=== PATIENT | female | born 1940 | race Caucasian/White ===

== ENCOUNTER 2017-09-27 10:31 | Emergency (ER) | payer BC, MEDICARE, OTHER ==
[~2017-09-27] VITALS: Ht 170.2 cm; Wt 85.4 kg
[~2017-09-27 10:31] MED LIST: KETO10 PO; Z.0.NO CURRENT MEDS
[2017-09-27 10:35] VITALS: BP 186/96; PULSE 97; RESP 18; TEMP 98.4; O2SAT 97
[2017-09-27] MEDS ORDERED: BENZ100 PO (11:00)
[2017-09-27] MEDS ORDERED: ALBUAER3 INH (11:00)
[2017-09-27] MEDS ORDERED: AZIT250T3 PO (11:00)
--- NOTE | 2017-09-27 11:01 | PD ---
HPI Chief Complaint: Cold / Flu Symptoms Time Seen by Provider: 10:42 Travel History International Travel<30 days: No Contact w/Intl Traveler<30days: No Traveled to known affect area: No History of Present Illness HPI This is a 77-year-old female here with a productive cough and reported colored phlegm 1 week. She reports the cough has actually been present for 1 month. She reports similar symptoms in the past with bronchitis. Denies fever or chills. No chest pain or shortness of breath. No myalgias. Patient is from [place] and [place] in [place]. Symptom severity is moderate. No aggravating or alleviating factors. PFSH Past Medical History High Cholesterol: Yes Diminished Hearing: No Respiratory: Yes (BRONCHITIS, PNEUMONIA 2004) ?: Not Menopausal: Yes Past Surgical History Section: Yes Other Surgery: Yes (BREAST, HEMRRHOID SURGERY) Social History Alcohol Use: No Tobacco Use: No Substance Use: No Allergies-Medications (Allergen,Severity, Reaction): Coded Allergies: No Known Allergies (Verified Adverse Reaction, Unknown, 09/27/17) Reported Meds & Prescriptions Reported Meds & Active Scripts Active Toradol (Ketorolac Tromethamine) 10 Mg Tab 10 Mg PO Q6HPRN Reported No Current Meds (Miscellaneous Medication) Misc Review of Systems Except as stated in HPI: all other systems reviewed are Neg General / Constitutional: No: Fever Eyes: No: Visual changes HENT: No: Headaches Cardiovascular: No: Chest Pain or Discomfort Respiratory: Positive: Cough Gastrointestinal: No: Abdominal Pain Genitourinary: No: Dysuria Musculoskeletal: No: Pain Skin: No Rash Physical Exam Narrative GENERAL: Alert and nontoxic appearing 77-year-old female SKIN: Warm and dry. No rash HEAD: Normocephalic. EYES: No injection or drainage. EARS/NOSE/THROAT: Mild pharyngeal erythema without tonsilar hypertrophy or exudate. NECK: Supple, trachea midline. CARDIOVASCULAR: Regular rate and rhythm without murmurs, gallops, or rubs. RESPIRATORY: Breath sounds equal bilaterally. No accessory muscle use. Rhonchorous cough. GASTROINTESTINAL: Abdomen soft, non-tender, nondistended. MUSCULOSKELETAL: No cyanosis, or edema. Data Data Last Documented VS Vital Signs Date Time Temp Pulse Resp B/P (MAP) Pulse Ox O2 Delivery O2 Flow Rate FiO2 09/27/17 10:35 98.4 97 18 186/96 [phone] MDM Medical Decision Making Medical Screen Exam Complete: Yes Emergency Medical Condition: Yes Differential Diagnosis Bronchitis, pneumonia, influenza Narrative Course This is a 77-year-old female with productive cough. She is well-appearing. She is afebrile. No symptoms of flu. She will be treated for bronchitis with azithromycin, Tessalon Perles, albuterol inhaler. Diagnosis Primary Impression: Bronchitis Referrals: Primary Care Physician Additional Instructions: Antibiotics as prescribed. Tessalon Perles as needed for cough. Albuterol inhaler as needed for wheezing. Return if he developed new or worsening symptoms. Scripts Albuterol 8.5 GM Inh (Proair Hfa 8.5 GM Inh) 90 Mcg/Act Aer 2 PUFF INH Q4-6H Y for SHORTNESS OF BREATH, #1 INHALER 0 Refills 108 mcg/actuation Prov: Cherie Jovel 09/27/17 Benzonatate (Tessalon Perles) 100 Mg Cap 200 MG PO TID Y for COUGH, #12 CAP 0 Refills Prov: Cherie Jovel 09/27/17 Azithromycin (Azithromycin) 250 Mg Tab 250 MG PO DIRECTED for Infection, #6 TAB 0 Refills Take 2 tabs (500 mg) on day 1 then 1 tab daily x 4 days. Prov: Cherie Jovel 09/27/17 Disposition: 01 DISCHARGE HOME Condition: Stable Cherie Jovel Sep 27, 2017 11:01
[2017-09-27] MEDS ORDERED: TAMO10TA6 PO (11:02)
== END 2017-09-27 11:19 | disposition home or self-care (01) ==
LOC: PHEFT 10:31
DX: J40 Bronchitis, not specified as acute or chronic (principal); E78.00 Pure hypercholesterolemia, unspecified; Z79.899 Other long term (current) drug therapy
CPT/HCPCS: 99284

== ENCOUNTER 2017-10-02 12:28 | Emergency (ER) | payer MEDICARE, OTHER ==
[~2017-10-02] VITALS: Ht 170.2 cm; Wt 83.7 kg
[~2017-10-02 12:28] MED LIST changes: -KETO10 PO; +TAMO10TA6 PO; -Z.0.NO CURRENT MEDS
[2017-10-02 12:48] VITALS: BP 157/86; PULSE 82; RESP 16; TEMP 99.1; O2SAT 96
[2017-10-02] MEDS ORDERED: RESP: ALBUTEROL 2.5 MG/IPRATROPIUM 0.5 MG NEB (SCH) INH ONE (13:45)
--- NOTE | 2017-10-02 13:46 | PD ---
HPI Chief Complaint: Cold / Flu Symptoms Time Seen by Provider: 13:35 Travel History International Travel<30 days: No Contact w/Intl Traveler<30days: No Traveled to known affect area: No History of Present Illness HPI 77 her old female presents for evaluation of cough. Symptoms started one month ago. The cough is productive with green sputum. Worse at night. Associated with a "rattling" sensation in her chest which is worsened night. She was seen here 5 days ago, diagnosed with bronchitis, prescribed Tessalon, albuterol inhaler, azithromycin. She completed the azithromycin yesterday and the cough persist which prompted her evaluation. She did not get the prescriptions for Tessalon her albuterol filled. Denies any fevers, chills, abdominal pain, nausea or vomiting, acute dyspnea. She has no other complaints at this time. PFSH Past Medical History Cancer: Yes (breast ) High Cholesterol: Yes Diminished Hearing: No Respiratory: Yes (BRONCHITIS, PNEUMONIA 2003) Radiation Therapy: Yes Menopausal: Yes Past Surgical History Section: Yes (x 2) Eye Surgery: Yes Other Surgery: Yes (BREAST, HEMRRHOID SURGERY) Social History Alcohol Use: No Tobacco Use: No Substance Use: No Allergies-Medications (Allergen,Severity, Reaction): Coded Allergies: No Known Allergies (Verified Adverse Reaction, Unknown, 10/02/17) Reported Meds & Prescriptions Reported Meds & Active Scripts Active Prednisone 20 Mg Tab 20 Mg PO BID 5 Days Tessalon Perles (Benzonatate) 100 Mg Cap 200 Mg PO TID PRN Proair Hfa 8.5 GM Inh (Albuterol Sulfate) 90 Mcg/Act Aer 2 Puff INH Q4-6H PRN 108 mcg/actuation Reported Tamoxifen (Tamoxifen Citrate) 10 Mg Tab 10 Mg PO DAILY Review of Systems Except as stated in HPI: all other systems reviewed are Neg Physical Exam Narrative GENERAL: Well-developed well-nourished female in no acute distress SKIN: Warm and dry. HEAD: Atraumatic. Normocephalic. EYES: Pupils equal and round. No scleral icterus. No injection or drainage. ENT: No nasal bleeding or discharge. Mucous membranes pink and moist. NECK: Trachea midline. No JVD. CARDIOVASCULAR: Regular rate and rhythm. No murmur appreciated. RESPIRATORY: No accessory muscle use. Slight inspiratory wheezing bilaterally. GASTROINTESTINAL: Abdomen soft, non-tender, nondistended. Hepatic and splenic margins not palpable. MUSCULOSKELETAL: No obvious deformities. No clubbing. No cyanosis. No edema. NEUROLOGICAL: Awake and alert. No obvious cranial nerve deficits. Motor grossly within normal limits. Normal speech. PSYCHIATRIC: Appropriate mood and affect; insight and judgment normal. Data Data Last Documented VS Vital Signs Date Time Temp Pulse Resp B/P (MAP) Pulse Ox O2 Delivery O2 Flow Rate FiO2 10/02/17 12:48 99.1 82 16 157/86 (109) 96 Orders Orders Chest, Pa & Lat (10/02/17 ) Albuterol-Ipratropium Neb (Duoneb Neb) (10/02/17 13:45) MDM Medical Decision Making Medical Screen Exam Complete: Yes Emergency Medical Condition: Yes Medical Record Reviewed: Yes Differential Diagnosis Bronchitis, reactive airway disease, pneumonia, sinusitis Narrative Course The patient appears well. Because of the duration of her symptoms, chest x-ray has been ordered. She does have slight wheezing and a likely that it from bronchodilators and corticosteroids. DuoNeb treatment has been ordered. X-rays negative. The patient experienced significant improvement with DuoNeb treatment. She will be given a new prescription for albuterol and Tessalon because she no longer has her previous prescriptions. She will also be given a short course of prednisone. Diagnosis Primary Impression: Bronchitis Med/Other Pt SpecificInfo: Prescription(s) given Scripts Prednisone (Prednisone) 20 Mg Tab 20 MG PO BID for 5 Days, #10 TAB 0 Refills Prov: Cara Smith MD 10/02/17 Benzonatate (Tessalon Perles) 100 Mg Cap 200 MG PO TID Y for COUGH, #30 CAP 0 Refills Prov: Cara Smith MD 10/02/17 Albuterol 8.5 GM Inh (Proair Hfa 8.5 GM Inh) 90 Mcg/Act Aer 2 PUFF INH Q4-6H Y for SHORTNESS OF BREATH, #1 INHALER 0 Refills 108 mcg/actuation Prov: Cara Smith MD 10/02/17 Disposition: 01 DISCHARGE HOME Condition: Stable Rom Serrano Oct 02, 2017 13:46
--- NOTE | 2017-10-02 14:34 | RADRPT ---
EXAM DATE/TIME: 10/02/2017 13:49 [facility] COMPARISON: No previous studies available for comparison. INDICATIONS : Cough, congestion, bronchitis. MEDICAL HISTORY : None. SURGICAL HISTORY : None. ENCOUNTER: Initial ACUITY: 1 week PAIN SCORE: 0/10 LOCATION: Bilateral chest FINDINGS: PA and lateral views of the chest demonstrate the lungs to be symmetrically aerated without evidence of mass, infiltrate or effusion. The cardiomediastinal contours are unremarkable. Osseous structure s are intact. Atherosclerotic calcifications are present in the aorta. There are surgical clips along the left lateral breast. Biapical pleural-parenchymal changes noted consistent with scarring. CONCLUSION: No acute disease. There is no evidence of pneumonia. Buck Pruett MD on October 02, 2017 at 14:31 Board Certified Radiologist. This report was verified electronically.
[2017-10-02] MEDS ORDERED: BENZ100 PO (14:54)
[2017-10-02] MEDS ORDERED: ALBUAER3 INH (14:54)
[2017-10-02] MEDS ORDERED: PRED20 PO (14:54)
== END 2017-10-02 18:51 | disposition home or self-care (01) ==
LOC: PHEFT 12:28
DX: J40 Bronchitis, not specified as acute or chronic (principal); Z85.3 Personal history of malignant neoplasm of breast
CPT/HCPCS: 71046; 94664; 99284